=== PATIENT | male | born 1985 | race Caucasian/White ===

== ENCOUNTER 2023-10-25 18:25 | Emergency (ER) | payer BC ==
[~2023-10-25] VITALS: Ht 170.2 cm; Wt 77.1 kg
[2023-10-25 18:48] VITALS: BP_SYST 171; PULSE 87; RESP 18; TEMP 98.3; O2SAT 94
[2023-10-25] MEDS ORDERED: KETOROLAC TROMETHAMINE 30 MG VIAL IVP ONE (19:15)
[2023-10-25] MEDS ORDERED: NACL 0.9% 1,000 ML IV ONE (19:15)
[2023-10-25 20:11] LABS: BILIRUBIN,URINE NEGATIVE (NEGATIVE); BLOOD, URINE 3+ (NEGATIVE); CLARITY/URINE CLOUDY (CLEAR); COLOR,URINE YELLOW (YELLOW); GLUCOSE,URINE NEGATIVE (NEGATIVE); KETONES,URINE NEGATIVE (NEGATIVE); LEUKOCYTE ESTERASE ,URINE NEGATIVE (NEGATIVE); NITRITE, URINE NEGATIVE (NEGATIVE); PROTEIN URINE NEGATIVE (NEGATIVE); UROBILINOGEN,URINE 0.2 (0.2-1.0)
[2023-10-25 20:24] LABS: BACTERIA,URINE FEW /HPF (None Seen); WBC,URINE 0-3 /HPF (0-3)
[2023-10-25] MEDS ORDERED: KETO10TA2 PO (20:33)
[2023-10-25] MEDS ORDERED: TAMS-11 PO (20:33)
[2023-10-25 21:04] LABS: BASOPHILS # (AUTO) 0.1 K/uL (0.0-0.2); BASOPHILS % (AUTO) 0.4 % (0.0-2.0); EOSINOPHILS # (AUTO) 0.1 K/uL (0.0-0.4); EOSINOPHILS % (AUTO) 0.8 % (0.0-4.0); HEMATOCRIT 43.7 % (36-54); LYMPHOCYTES # (AUTO) 1.8 K/uL (1.0-5.5); LYMPHOCYTES % (AUTO) 11.5 % (20.5-51.5); MEAN CORPUSCULAR HEMOGLOBIN 30 pg (27-31); MEAN CORPUSCULAR HGB CONC 34 % (32-36); MEAN CORPUSCULAR VOLUME 89 fL (79.0-98.0); MONOCYTES # (AUTO) 1.1 K/uL (0.0-1.0); NEUTROPHILS # (AUTO) 12.2 K/uL (1.8-7.7); NEUTROPHILS % (AUTO) 80.3 % (40.0-70.0); PLATELET COUNT (AUTO) 199 K/uL (130-430); RED BLOOD CELL COUNT(AUTO) 4.92 MIL/uL (4.2-6.2); RED CELL DISTRIBUTION WIDTH 12.9 % (9.0-15.0); WHITE BLOOD COUNT (AUTO) 15.2 K/uL (4.8-10.8)
[2023-10-25 21:06] VITALS: BP_SYST 139; PULSE 79; RESP 18; TEMP 98.2; O2SAT 97
[2023-10-25 21:11] LABS: CALCIUM 7.8 mg/dL (8.4-11.0); CREATININE 1.05 mg/dL (0.55-1.30); POTASSIUM 4.2 mmol/L (3.5-5.1)
== END 2023-10-25 21:06 | disposition home or self-care (01) ==
LOC: SED 18:25
DX: N20.1 Calculus of ureter (principal); R10.9 Unspecified abdominal pain; R35.0 Frequency of micturition; R11.0 Nausea; Z79.899 Other long term (current) drug therapy
CPT/HCPCS: 99285; 74176; 96374; 96361; 80048; 81001; 85025; 36415; 76376; 81000; 81015; J1885; J7030